=== PATIENT | female | born 1990 | race Caucasian/White ===

== ENCOUNTER 2020-08-31 18:37 | Emergency (ER) | payer OTHER ==
[2020-08-31 19:11] VITALS: RESP 18; TEMP 98.1
[2020-08-31] MEDS ORDERED: KETOROLAC 15 MG/ML 1 ML VIAL IVP STA (19:30)
[2020-08-31] MEDS ORDERED: SODIUM CHLORIDE 0.9% 1,000 ML IV STA (19:30)
--- NOTE | 2020-08-31 19:55 | ED ---
Abdominal Pain HPI - General Chief Complaint: Abdominal Pain Stated Complaint: Abd Pain Time Seen by Provider: 08/31/20 19:19 Source: patient Mode of arrival: ambulatory Limitations: no limitations - History of Present Illness Initial Comments: Patient is a 29-year-old female presenting to the emergency Department with complaints of left-sided abdominal pain that started sharply today. Patient states just a few hours ago she has noticed very sharp left-sided abdominal pain that radiates down to her "ovaries." Patient states she is set to start her period any day now and thought it might just be menstrual cramps however she states this pain is much more severe than menstrual cramps. She states she is also feeling pain upper left abdomen, suprapubic as well. She denies any abdominal surgeries, states she has delivered 2 babies vaginally and states his pain is much worse. She denies history of kidney stones. She denies any urinary complaints, has been having normal bowel movements. She states she does not believe she is but cannot be 100% sure. She does admit to some mild nausea earlier but none at this time, no vomiting, no diarrhea. She denies any chest pain or shortness of breath. She states the pain has been constant and very severe. She did not take anything for the pain yet. She has no further complaints. Upon arrival to the ER, patient is tachycardia, otherwise normal. - Related Data Home Medications Medication Instructions Recorded Confirmed No Known Home Medications 08/31/20 08/31/20 Allergies Allergy/AdvReac Type Severity Reaction Status Date / Time No Known Allergies Allergy Verified 08/31/20 21:16 Review of Systems ROS Statement: Those systems with pertinent positive or pertinent negative responses have been documented in the HPI. ROS Other: All systems not noted in ROS Statement are negative. Past Medical History Past Medical History: No Reported History Additional Past Medical History / Comment(s): seasonal allergies History of Any Multi-Drug Resistant Organisms: None Reported Past Surgical History: No Surgical Hx Reported Past Anesthesia/Blood Transfusion Reactions: No Reported Reaction Additional Past Anesthesia/Blood Transfusion Reaction / Comment(s): no hx general anesthesia Past Psychological History: No Psychological Hx Reported Smoking Status: Current every day smoker Past Alcohol Use History: Occasional Past Drug Use History: Marijuana - Past Family History Mother Family Medical History: No Reported History Father Family Medical History: No Reported History General Exam - General Exam Comments Initial Comments: GENERAL: Patient is well-developed and well-nourished. Patient is in moderate distress secondary to abdominal pain.. HEAD: Atraumatic, normocephalic. EYES: Pupils equal round and reactive to light, extraocular movements intact, sclera anicteric, conjunctiva are normal. Eyelids were unremarkable. ENT: TMs normal, nares patent, oropharynx clear without exudates. Moist mucous membranes. NECK: Normal range of motion, supple without lymphadenopathy or JVD. LUNGS: Unlabored respirations. Breath sounds clear to auscultation bilaterally and equal. No wheezes rales or rhonchi. HEART: Regular rate and rhythm without murmurs, rubs or gallops. ABDOMEN: Tender to palpation suprapubic, left lower quadrant, left upper quadrant, umbilical area. Soft, normoactive bowel sounds. No guarding, no rebound. No masses appreciated. : Deferred MUSCULOSKELETAL: Normal extremities with adequate strength and normal range of motion, no pitting or edema. No clubbing or cyanosis. NEUROLOGICAL: Patient is alert and oriented x 3. Motor and sensory are also intact. Cranial nerves II through XII grossly intact. Symmetrical smile. Normal speech, normal gait. PSYCH: Normal mood, normal affect. SKIN: Warm, Dry, normal turgor, no rashes or lesions noted. Limitations: no limitations Course Vital Signs 08/31/20 08/31/20 08/31/20 19:07 20:45 22:07 Temperature 98.1 F Pulse Rate 111 H 92 92 Respiratory 18 18 Rate Blood Pressure 150/90 134/91 O2 Sat by Pulse 98 98 97 Oximetry Medical Decision Making - Medical Decision Making Patient is a 29-year-old female here for acute abdominal pain started to 3 hours prior to arrival. She has tachycardia otherwise vitals are normal. Denies history of abdominal surgeries, is set to start her menstrual cycle but this pain is much more severe. Labs show a slightly pulsatile set 11.8, hemoglobin is stable. Lactic acid is 1.4. Liver enzymes are slightly elevated, lipase is normal. Urine shows no evidence of bacteria, she is not . CT of the abdomen and pelvis shows a very large cystic mass in the abdomen and pelvis that measures 23 cm in length most likely a cyst arising from the ovary. Patient was given Toradol and some fluids and has been resting comfortably. We did attempt to contact patient's original ATTORNEY LAWYER, Dr. Michael however he stated it's been a few years since he saw the patient, stated to call ed educational aide OBGYN. Dr. Mcnamara was in the hospital and did come down and see the patient. Patient will be discharged and will see Dr. Mcnamara in the office in 2 days. We did add CA-125, this is pending. Patient is in agreement with this plan of care. Strict return parameters were discussed with the patient and she verbalized understanding. Case discussed with Dr. Costa. - Lab Data Result diagrams: 08/31/20 19:55 08/31/20 19:55 Lab Results 08/31/20 08/31/20 08/31/20 Range/Units 19:55 19:55 19:55 WBC 11.8 H (3.8-10.6) k/uL RBC 5.08 (3.80-5.40) m/uL Hgb 15.6 (11.4-16.0) gm/dL Hct 48.1 H (34.0-46.0) % MCV 94.8 (80.0-100.0) fL MCH 30.7 (25.0-35.0) pg MCHC 32.4 (31.0-37.0) g/dL RDW 13.6 (11.5-15.5) % Plt Count 195 (150-450) k/uL Neutrophils % 77 % Lymphocytes % 15 % Monocytes % 4 % Eosinophils % 2 % Basophils % 0 % Neutrophils # 9.2 H (1.3-7.7) k/uL Lymphocytes # 1.8 (1.0-4.8) k/uL Monocytes # 0.4 (0-1.0) k/uL Eosinophils # 0.2 (0-0.7) k/uL Basophils # 0.0 (0-0.2) k/uL Sodium (137-145) mmol/L Potassium (3.5-5.1) mmol/L Chloride (98-107) mmol/L Carbon Dioxide (22-30) mmol/L Anion Gap mmol/L BUN (7-17) mg/dL Creatinine (0.52-1.04) mg/dL Est GFR (CKD-EPI)AfAm (>60 ml/min/1.73 sqM) Est GFR (CKD-EPI)NonAf (>60 ml/min/1.73 sqM) Glucose (74-99) mg/dL Plasma Lactic Acid Gagan (0.7-2.0) mmol/L Calcium (8.4-10.2) mg/dL Total Bilirubin (0.2-1.3) mg/dL AST (14-36) U/L ALT (4-34) U/L Alkaline Phosphatase (38-126) U/L Total Protein (6.3-8.2) g/dL Albumin (3.5-5.0) g/dL Amylase (30-110) U/L Lipase (23-300) U/L Urine Color Yellow Urine Appearance Clear (Clear) Urine pH 5.5 (5.0-8.0) Ur Specific Prospect 1.026 (1.001-1.035) Urine Protein Negative (Negative) Urine Glucose (UA) Negative (Negative) Urine Ketones Negative (Negative) Urine Blood Negative (Negative) Urine Nitrite Negative (Negative) Urine Bilirubin Negative (Negative) Urine Urobilinogen <2.0 (<2.0) mg/dL Ur Leukocyte Esterase Small H (Negative) Urine RBC 1 (0-5) /hpf Urine WBC 1 (0-5) /hpf Ur Squamous Epith Cells 5 H (0-4) /hpf Urine Bacteria Rare H (None) /hpf Urine Mucus Moderate H (None) /hpf Urine HCG, Qual Not Detected (Not Detectd) 08/31/20 08/31/20 Range/Units 19:55 19:55 WBC (3.8-10.6) k/uL RBC (3.80-5.40) m/uL Hgb (11.4-16.0) gm/dL Hct (34.0-46.0) % MCV (80.0-100.0) fL MCH (25.0-35.0) pg MCHC (31.0-37.0) g/dL RDW (11.5-15.5) % Plt Count (150-450) k/uL Neutrophils % % Lymphocytes % % Monocytes % % Eosinophils % % Basophils % % Neutrophils # (1.3-7.7) k/uL Lymphocytes # (1.0-4.8) k/uL Monocytes # (0-1.0) k/uL Eosinophils # (0-0.7) k/uL Basophils # (0-0.2) k/uL Sodium 139 (137-145) mmol/L Potassium 4.5 (3.5-5.1) mmol/L Chloride 105 (98-107) mmol/L Carbon Dioxide 24 (22-30) mmol/L Anion Gap 10 mmol/L BUN 13 (7-17) mg/dL Creatinine 0.65 (0.52-1.04) mg/dL Est GFR (CKD-EPI)AfAm >90 (>60 ml/min/1.73 sqM) Est GFR (CKD-EPI)NonAf >90 (>60 ml/min/1.73 sqM) Glucose 121 H (74-99) mg/dL Plasma Lactic Acid Gagan 1.4 (0.7-2.0) mmol/L Calcium 10.2 (8.4-10.2) mg/dL Total Bilirubin 0.7 (0.2-1.3) mg/dL AST 57 H (14-36) U/L ALT 98 H (4-34) U/L Alkaline Phosphatase 98 (38-126) U/L Total Protein 7.5 (6.3-8.2) g/dL Albumin 4.6 (3.5-5.0) g/dL Amylase 47 (30-110) U/L Lipase 106 (23-300) U/L Urine Color Urine Appearance (Clear) Urine pH (5.0-8.0) Ur Specific Prospect (1.001-1.035) Urine Protein (Negative) Urine Glucose (UA) (Negative) Urine Ketones (Negative) Urine Blood (Negative) Urine Nitrite (Negative) Urine Bilirubin (Negative) Urine Urobilinogen (<2.0) mg/dL Ur Leukocyte Esterase (Negative) Urine RBC (0-5) /hpf Urine WBC (0-5) /hpf Ur Squamous Epith Cells (0-4) /hpf Urine Bacteria (None) /hpf Urine Mucus (None) /hpf Urine HCG, Qual (Not Detectd) Disposition Clinical Impression: Abdominal pain, Ovarian cyst Disposition: HOME SELF-CARE Condition: Stable Instructions (If sedation given, give patient instructions): Ovarian Cyst (ED) Additional Instructions: Please return to the Emergency Department if symptoms worsen or any other concerns. May take Tylenol or Motrin for discomfort. Follow-up with Dr. Mcnamara as discussed. Is patient prescribed a controlled substance at d/c from ED?: No Referrals: Dudley Aguirre MD [Primary Care Provider] - 1-2 days Beni Mcnamara DO [Doctor of Osteopathic Medicine] - 1-2 days
[2020-08-31 20:21] LABS: Basophils % (A) 0 %; Eosinophils # (A) 0.2 k/uL (0-0.7); Eosinophils % (A) 2 %; HCT 48.1 % (34.0-46.0); HGB 15.6 gm/dL (11.4-16.0); Lymphocytes # (A) 1.8 k/uL (1.0-4.8); Lymphocytes % (A) 15 %; MCH 30.7 pg (25.0-35.0); MCHC 32.4 g/dL (31.0-37.0); MCV 94.8 fL (80.0-100.0); Mean Platelet Volume 9.9; Monocytes # (A) 0.4 k/uL (0-1.0); Monocytes % (A) 4 %; Neutrophils # (A) 9.2 k/uL (1.3-7.7); Neutrophils % (A) 77 %; Platelet Count 195 k/uL (150-450); RBC 5.08 m/uL (3.80-5.40); RDW 13.6 % (11.5-15.5); WBC 11.8 k/uL (3.8-10.6)
[2020-08-31 20:23] LABS: Appearance,Urine Clear (Clear); Bacteria,Urine Rare /hpf; Bilirubin,Urine Negative (Negative); Blood,Urine Negative (Negative); Color,Urine Yellow; Glucose,Urine (UA) Negative (Negative); Ketones,Urine Negative (Negative); Leukocyte Esterase,Urine Small (Negative); Mucus,Urine Moderate /hpf; Nitrite,Urine Negative (Negative); PH, Urine 5.5 (5.0-8.0); Protein,Urine Negative (Negative); RBC,Urine 1 /hpf (0-5); Specific Gravity,Urine 1.026 (1.001-1.035); Squamous Epithelial Cell,Urine 5 /hpf (0-4); Urobilinogen,Urine <2.0 mg/dL (<2.0); WBC,Urine 1 /hpf (0-5)
[2020-08-31 20:30] LABS: ALT 98 U/L (4-34); AST 57 U/L (14-36); African American GFR (CKD) >90 (>60 ml/min/1.73 sqM); Albumin 4.6 g/dL (3.5-5.0); Alkaline Phosphatase 98 U/L (38-126); Amylase 47 U/L (30-110); Anion Gap 10 mmol/L; Blood Urea Nitrogen 13 mg/dL (7-17); Calcium 10.2 mg/dL (8.4-10.2); Carbon Dioxide 24 mmol/L (22-30); Chloride 105 mmol/L (98-107); Glucose 121 mg/dL (74-99); Non-African American GFR(CKD) >90 (>60 ml/min/1.73 sqM); Potassium 4.5 mmol/L (3.5-5.1); Sodium 139 mmol/L (137-145); Total Bilirubin 0.7 mg/dL (0.2-1.3); Total Protein 7.5 g/dL (6.3-8.2)
[2020-08-31 21:20] VITALS: PULSE 92
--- NOTE | 2020-08-31 21:27 | CT ---
EXAMINATION TYPE: CT abdomen pelvis w con DATE OF EXAM: 08/31/2020 COMPARISON: None HISTORY: Abdomen pain. Pt states hx of cysts during last pregancy. CT DLP: 2237.2 mGycm Automated exposure control for dose reduction was used. CONTRAST: Performed with IV Contrast, patient injected with 100 mL of Isovue 300. Lung bases are clear. There is no pleural effusion. Heart size is normal. There is no pericardial eff usion. Liver spleen stomach pancreas gallbladder appear normal. Bile ducts are not dilated. There is no adrenal mass. Kidneys show satisfactory contrast opacification. There is no hydronephrosi s. Delayed images show normal renal excretion. Ureters are not dilated. Bladder distends smoothly. Th ere is no inguinal hernia. Uterus is anteverted. There is no free fluid in the pelvis. There is very large cystic mass in the abdomen and pelvis that measures 23 cm in length and occupies a large portion of the volume of the abdomen and pelvis. The mass is approximately in the midline. Th is is probably arising from the ovary. The appendix is posterior and appears normal. There is no mesenteric edema. There is no ascites or fr ee air. There is no bowel obstruction. Lumbar vertebra have normal spacing and alignment. Posterior elements are intact. Bony pelvis is inta ct. Hip joints are intact. IMPRESSION: Large cystic thin wall low-density abdominal and pelvic mass is probably a cyst arising from the ovar y.
[2020-08-31 22:08] VITALS: BP 134/91
--- NOTE | 2020-08-31 23:09 | P.OBCN ---
History of Present Illness Consult date: 08/31/20 Requesting physician: Lise Jacobs Reason for consult: pelvic mass Chief complaint: Pelvic mass History of present illness: Rachele is a very pleasant 29-year-old female who earlier today had significant amount of epigastric and abdominal pain and was brought into the emergency room. At that time a CAT scan was ordered with suspicion for abdominal issues, however on CAT scan there is a 23+ centimeter what looks to be left ovarian mass. It is described as thin walled but no other description as there. As I am seeing her, she is in no acute distress smiling and laughing but is somewhat emotional over the fact that she has this large mass that she did not know about. She relates that approximately 5 years ago she knew that she had a 5-7 cm left ovarian cyst that was present during her but no follow-up had ever been done. It is unclear if this is the same pelvic mass. As she has no symptoms at this time, and with the size of this mass being so large a torsion is very unlikely, we discussed trying to come up with a plan for her long-term management. I did offer to admit her to the hospital for observational status but she declines and would like to be sent home and she'll follow up with me on Monday afternoon for a gynecologic point. In the interim I plan to speak with the [facility] oncologists and determine what will be the most efficacious way for us to manage her mass. A CA-125 has been ordered. I am not certain I'm comfortable with removing a 23 cm mass and arm deferring two-car miosis recommendations. If they believe that this is something that can manage locally then we'll plan to schedule surgery in the near future, however there is a high likelihood that they will want to assume care for this patient. Past medical history none Past surgical history none ALLERGIES none Social history assume for three quarters of a pack per day tobacco abuse, occasional alcohol and occasional marijuana use Family history is noncontributory On physical exam vital signs are stable and afebrile. She does have a total abdominal protrusion and firmness the left abdomen. She has tenderness in this area as well. Pelvic exams deferred. Minimal manipulation was done as to not risk rupturing at this time. Assessment pelvic mass. Plan follow up on Monday for evaluation the office and long-term management plan. Return to the emergency room if worsening symptoms occur. She is aware should we need to take her to surgery she may end up having a very large vertical exporter laparotomy incision and she would also like to minimize this risk. Past Medical History Past Medical History: No Reported History Additional Past Medical History / Comment(s): seasonal allergies History of Any Multi-Drug Resistant Organisms: None Reported Past Surgical History: No Surgical Hx Reported Past Anesthesia/Blood Transfusion Reactions: No Reported Reaction Additional Past Anesthesia/Blood Transfusion Reaction / Comm: no hx general anesthesia Past Psychological History: No Psychological Hx Reported Smoking Status: Current every day smoker Past Alcohol Use History: Occasional Past Drug Use History: Marijuana - Past Family History Mother Family Medical History: No Reported History Father Family Medical History: No Reported History Medications and Allergies Home Medications Medication Instructions Recorded Confirmed Type No Known Home Medications 08/31/20 08/31/20 History Allergies Allergy/AdvReac Type Severity Reaction Status Date / Time No Known Allergies Allergy Verified 08/31/20 21:16 Exam Osteopathic Statement: *. No significant issues noted on an osteopathic structu ral exam other than those noted in the History and Physical/Consult. Vital Signs Temp Pulse Resp BP Pulse Ox 08/31/20 22:07 92 18 134/91 97 08/31/20 20:45 92 98 08/31/20 19:07 98.1 F 111 H 18 150/90 98 Intake and Output 08/31/20 08/31/20 09/01/20 14:59 22:59 06:59 Other: Weight 95.254 kg Results Result Diagrams: 08/31/20 19:55 08/31/20 19:55 Abnormal Lab Results - Last 24 Hours (Table) 08/31/20 08/31/20 08/31/20 Range/Units 19:55 19:55 19:55 WBC 11.8 H (3.8-10.6) k/uL Hct 48.1 H (34.0-46.0) % Neutrophils # 9.2 H (1.3-7.7) k/uL Glucose 121 H (74-99) mg/dL AST 57 H (14-36) U/L ALT 98 H (4-34) U/L Ur Leukocyte Esterase Small H (Negative) Ur Squamous Epith Cells 5 H (0-4) /hpf Urine Bacteria Rare H (None) /hpf Urine Mucus Moderate H (None) /hpf
== END 2020-08-31 23:14 | disposition home or self-care (01) ==
LOC: EC 18:37
DX: N83.209 Unspecified ovarian cyst, unspecified side (principal); F17.200 Nicotine dependence, unspecified, uncomplicated
CPT/HCPCS: 36415; 80053; 86304; 82150; 83605; 83690; 85025; 81001; 81025; 74177; 99284; 96374; 96361 ×2; J1885; Q9967

== ENCOUNTER 2024-03-31 07:11 | Emergency (ER) | payer OTHER ==
[2024-03-31] MEDS: KETOROLAC 15 MG/ML 1 ML VIAL IVP STA (07:43)
[2024-03-31] MEDS: ONDANSETRON 4 MG/2 ML VIAL IVP STA (07:43)
[2024-03-31] MEDS: SODIUM CHLORIDE 0.9% 1,000 ML IV STA (07:44)
[2024-03-31] MEDS: SODIUM CHLORIDE 0.9% 500 ML 500 ML IV STA (07:44)
[2024-03-31 08:02] LABS: Basophils # (A) 0.1 k/uL (0-0.2); Basophils % (A) 0 %; Eosinophils # (A) 0.2 k/uL (0-0.7); Eosinophils % (A) 2 %; HCT 44.6 % (34.0-46.0); HGB 14.8 gm/dL (11.4-16.0); Lymphocytes # (A) 1.7 k/uL (1.0-4.8); Lymphocytes % (A) 13 %; MCH 30.2 pg (25.0-35.0); MCHC 33.2 g/dL (31.0-37.0); MCV 91.1 fL (80.0-100.0); Mean Platelet Volume 9.5; Monocytes # (A) 0.6 k/uL (0-1.0); Monocytes % (A) 5 %; Neutrophils # (A) 10.3 k/uL (1.3-7.7); Neutrophils % (A) 78 %; Platelet Count 201 k/uL (150-450); RBC 4.89 m/uL (3.80-5.40); RDW 13.2 % (11.5-15.5); WBC 13.2 k/uL (3.8-10.6)
[2024-03-31 08:17] LABS: ALT 40 U/L (4-34); AST 30 U/L (14-36); African American GFR (CKD) >90 (>60 ml/min/1.73 sqM); Albumin 4.2 g/dL (3.5-5.0); Alkaline Phosphatase 102 U/L (38-126); Anion Gap 7 mmol/L; Blood Urea Nitrogen 14 mg/dL (7-17); Calcium 9.3 mg/dL (8.4-10.2); Carbon Dioxide 22 mmol/L (22-30); Chloride 111 mmol/L (98-107); Glucose 130 mg/dL (74-99); Lipase 106 U/L (23-300); Non-African American GFR(CKD) >90 (>60 ml/min/1.73 sqM); Potassium 4.1 mmol/L (3.5-5.1); Sodium 140 mmol/L (137-145); Total Protein 7.1 g/dL (6.3-8.2)
--- NOTE | 2024-03-31 08:22 | CT ---
EXAMINATION TYPE: CT abdomen pelvis wo con DATE OF EXAM: 03/31/2024 COMPARISON: 08/31/2020 HISTORY: 33-year-old female RT flank pain CT DLP: 1076.4 mGycm. Automated exposure control for dose reduction was used. TECHNIQUE: Contiguous axial scanning of the abdomen and pelvis without IV contrast. Coronal and sagit marbella reconstructions performed. FINDINGS: LUNG BASES: No significant abnormality is appreciated. LIVER/GB: Mildly enlarged at 19.5 cm. Mildly diminished attenuation though improved from 2020. Tiny c alcified granuloma right liver lobe. Abnormal gallbladder distention. PANCREAS: No significant abnormality is seen. SPLEEN: No significant abnormality is seen. ADRENALS: No significant abnormality is seen. KIDNEYS: A couple nonobstructive 3 mm renal calculi on both sides. However, there is mild right-sided hydronephrosis and right-sided hydroureter with a 4 mm stone at the right UVJ. LYMPH NODES: No significant abnormality is seen. BOWEL: No significant abnormality is seen. Mild stool burden. OTHER: No significant abnormality is seen. PELVIS: Bladder partially distended. Uterus anteverted. Left ovary not well seen. Follicular changes in the right ovary. Numerous left-sided pelvic phlebolith. No abnormal fluid collection in the pelvis or pelvic lymphadenopathy. BONES: No significant abnormality is seen. IMPRESSION: 1. A 4 mm stone at the right UVJ with mild obstructive uropathy. 2. A couple additional nonobstructive punctate 3 mm renal calculi on both sides. 3. Mild hepatomegaly at 19.5 cm. There is residual mild hepatic steatosis though improved from 2020.
[2024-03-31 08:53] LABS: Appearance,Urine Cloudy (Clear); Bacteria,Urine Rare /hpf; Bilirubin,Urine Negative (Negative); Blood,Urine Moderate (Negative); Color,Urine Yellow; Glucose,Urine (UA) Negative (Negative); Ketones,Urine Negative (Negative); Leukocyte Esterase,Urine Moderate (Negative); Mucus,Urine Occasional /hpf; Nitrite,Urine Negative (Negative); PH, Urine 5.5 (5.0-8.0); Protein,Urine Negative (Negative); RBC,Urine >182 /hpf (0-5); Specific Gravity,Urine 1.018 (1.001-1.035); Squamous Epithelial Cell,Urine 6 /hpf (0-4); Urobilinogen,Urine <2.0 mg/dL (<2.0); WBC,Urine 3 /hpf (0-5)
--- NOTE | 2024-03-31 09:13 | ED ---
Abdominal Pain HPI - General Chief Complaint: Abdominal Pain Stated Complaint: kidney pain Time Seen by Provider: 03/31/24 07:21 Source: patient, RN notes reviewed Mode of arrival: ambulatory Limitations: no limitations - Related Data Previous Rx's Medication Instructions Recorded Ketorolac [Toradol] 10 mg PO Q8HR #15 tab 03/31/24 Ondansetron Odt [Zofran Odt] 4 mg PO Q8HR PRN #10 tab 03/31/24 Allergies Allergy/AdvReac Type Severity Reaction Status Date / Time No Known Allergies Allergy Verified 03/31/24 07:20 Review of Systems ROS Statement: Those systems with pertinent positive or pertinent negative responses have been documented in the HPI. ROS Other: All systems not noted in ROS Statement are negative. Past Medical History Past Medical History: No Reported History Additional Past Medical History / Comment(s): seasonal allergies History of Any Multi-Drug Resistant Organisms: None Reported Past Surgical History: No Surgical Hx Reported Additional Past Surgical History / Comment(s): Cyst removed from ovary. Past Anesthesia/Blood Transfusion Reactions: No Reported Reaction Additional Past Anesthesia/Blood Transfusion Reaction / Comment(s): no hx general anesthesia Past Psychological History: No Psychological Hx Reported Smoking Status: Current every day smoker Past Alcohol Use History: Occasional Past Drug Use History: Marijuana - Past Family History Mother Family Medical History: No Reported History Father Family Medical History: No Reported History General Exam Limitations: no limitations Course Vital Signs 03/31/24 03/31/24 07:17 09:25 Temperature 98.3 F 98 F Pulse Rate 94 77 Respiratory 20 16 Rate Blood Pressure 136/87 121/78 O2 Sat by Pulse 99 97 Oximetry Medical Decision Making - Medical Decision Making Was pt. sent in by a medical professional or institution (, PA, DRAGLINE OPERATOR HELPER, urgent care, hospital, or senior care...) When possible be specific @ -No Did you speak to anyone other than the patient for history (EMS, parent, family, police, friend...)? What history was obtained from this source @ -No Did you review nursing and triage notes (agree or disagree)? Why? @ -I reviewed and agree with nursing and triage notes Were old charts reviewed (outside hosp., previous admission, EMS record, old EKG, old radiological studies, urgent care reports/EKG's, senior care records)? Report findings @ -No old charts were reviewed Differential Diagnosis (chest pain, altered mental status, abdominal pain women, abdominal pain men, vaginal bleeding, weakness, fever, dyspnea, syncope, headache, dizziness, GI bleed, back pain, seizure, CVA, palpatations, mental health, musculoskeletal)? @Differential Abdominal Pain Women: Appendicitis, Cholecystitis, diverticulosis, ischemic bowel, pancreatitis, hepatitis, UTI, gastroenteritis, AAA, incarcerated hernia, bowel obstruction, constipation, inflammatory bowel, hepatitis, peptic ulcer disease, splenic infarction, perforated viscus, vulvitis, ovarian torsion, PID, kidney stone, placenta abruption, this is not meant to be an all-inclusive list EKG interpreted by me (3pts min.). @ -As above X-rays interpreted by me (1pt min.). @ -None done CT interpreted by me (1pt min.). @ -CT abdomen pelvis showing evidence of right sided ureteral calculus U/S interpreted by me (1pt. min.). @ -None done What testing was considered but not performed or refused? (CT, X-rays, U/S, labs)? Why? @ -None What meds were considered but not given or refused? Why? @ -None Did you discuss the management of the patient with other professionals (professionals i.e. , PA, DRAGLINE OPERATOR HELPER, lab, RT, psych nurse, social sciences professor, fish peddler, teacher, licensed loan officer, case preparer and liner)? Give summary @ -No Was smoking cessation discussed for >3mins.? @ -No Was critical care preformed (if so, how long)? @ -No Were there social determinants of health that impacted care today? How? (Homelessness, low income, unemployed, alcoholism, drug addiction, transportatio n, low edu. Level, literacy, decrease access to med. care, [facility] [facility], rehab)? @ -No Was there de-escalation of care discussed even if they declined (Discuss DNR or withdrawal of care, Hospice)? DNR status @ -No What co-morbidities impacted this encounter? (DM, HTN, Smoking, COPD, CAD, Cancer, CVA, ARF, Chemo, Hep., AIDS, mental health diagnosis, sleep apnea, morbid obesity)? @ -None Was patient admitted / discharged? Hospital course, mention meds given and route, prescriptions, significant lab abnormalities, going to OR and other pertinent info. @ -Discharged patient has kidney stone pain is improved patient is discharged in stable condition return parameters discussed. Undiagnosed new problem with uncertain prognosis? @ -No Drug Therapy requiring intensive monitoring for toxicity (Heparin, Nitro, Insulin, Cardizem)? @ -No Were any procedures done? @ -No Diagnosis/symptom? @ -Right ureteral calculus Acute, or Chronic, or Acute on Chronic? @ -Acute Uncomplicated (without systemic symptoms) or Complicated (systemic symptoms)? @ -uncomplicated Side effects of treatment? @ -No Exacerbation, Progression, or Severe Exacerbation? @ -No Poses a threat to life or bodily function? How? (Chest pain, [place], [place], pneumonia, PE, COPD, DKA, ARF, appy, cholecystitis, CVA, Diverticulitis, Homicidal, Suic idal, threat to staff... and all critical care pts) @ -No - Lab Data Result diagrams: 03/31/24 07:39 03/31/24 07:39 Lab Results 03/31/24 03/31/24 03/31/24 Range/Units 07:39 07:39 08:32 WBC 13.2 H (3.8-10.6) k/uL RBC 4.89 (3.80-5.40) m/uL Hgb 14.8 (11.4-16.0) gm/dL Hct 44.6 (34.0-46.0) % MCV 91.1 (80.0-100.0) fL MCH 30.2 (25.0-35.0) pg MCHC 33.2 (31.0-37.0) g/dL RDW 13.2 (11.5-15.5) % Plt Count 201 (150-450) k/uL MPV 9.5 Neutrophils % 78 % Lymphocytes % 13 % Monocytes % 5 % Eosinophils % 2 % Basophils % 0 % Neutrophils # 10.3 H (1.3-7.7) k/uL Lymphocytes # 1.7 (1.0-4.8) k/uL Monocytes # 0.6 (0-1.0) k/uL Eosinophils # 0.2 (0-0.7) k/uL Basophils # 0.1 (0-0.2) k/uL Sodium 140 (137-145) mmol/L Potassium 4.1 (3.5-5.1) mmol/L Chloride 111 H (98-107) mmol/L Carbon Dioxide 22 (22-30) mmol/L Anion Gap 7 mmol/L BUN 14 (7-17) mg/dL Creatinine 0.57 (0.52-1.04) mg/dL Est GFR (CKD-EPI)AfAm >90 (>60 ml/min/1.73 sqM) Est GFR (CKD-EPI)NonAf >90 (>60 ml/min/1.73 sqM) Glucose 130 H (74-99) mg/dL Calcium 9.3 (8.4-10.2) mg/dL Total Bilirubin 1.0 (0.2-1.3) mg/dL AST 30 (14-36) U/L ALT 40 H (4-34) U/L Alkaline Phosphatase 102 (38-126) U/L Total Protein 7.1 (6.3-8.2) g/dL Albumin 4.2 (3.5-5.0) g/dL Lipase 106 (23-300) U/L Urine Color Yellow Urine Appearance Cloudy H (Clear) Urine pH 5.5 (5.0-8.0) Ur Specific [place] 1.018 (1.001-1.035) Urine Protein Negative (Negative) Urine Glucose (UA) Negative (Negative) Urine Ketones Negative (Negative) Urine Blood Moderate H (Negative) Urine Nitrite Negative (Negative) Urine Bilirubin Negative (Negative) Urine Urobilinogen <2.0 (<2.0) mg/dL Ur Leukocyte Esterase Moderate H (Negative) Urine RBC >182 H (0-5) /hpf Urine WBC 3 (0-5) /hpf Ur Squamous Epith Cells 6 H (0-4) /hpf Urine Bacteria Rare H (None) /hpf Urine Mucus Occasional H (None) /hpf Disposition Clinical Impression: Right ureteral calculus Disposition: HOME SELF-CARE Condition: Stable Instructions (If sedation given, give patient instructions): Kidney Stones (ED) Additional Instructions: Please return to the Emergency Department if symptoms worsen or any other concerns. Prescriptions: Ketorolac [Toradol] 10 mg PO Q8HR #15 tab Ondansetron Odt [Zofran Odt] 4 mg PO Q8HR PRN #10 tab PRN Reason: Nausea Is patient prescribed a controlled substance at d/c from ED?: No Referrals: Dudley Aguirre [Primary Care Provider] - 1-2 days Time of Disposition: 09:12
[2024-03-31] MEDS: ACET/COD 300 MG/30 MG STARTER PACK 6 TAB BTL PO STA (09:21)
[2024-03-31 09:45] VITALS: BP 121/78; PULSE 77; RESP 16; TEMP 98
== END 2024-03-31 09:25 | disposition home or self-care (01) ==
LOC: EC 07:11
DX: K76.0 Fatty (change of) liver, not elsewhere classified (principal); N20.1 Calculus of ureter; F17.200 Nicotine dependence, unspecified, uncomplicated
CPT/HCPCS: 36415; 80053; 83690; 85025; 81001; 74176; 99284; 96374; 96375; 96361; J2405; J1885